=== PATIENT | female | born 1950 | race African-American/Black ===

== ENCOUNTER 2018-11-26 18:41 | Inpatient (IN) ==
[2018-11-26] MEDS ORDERED: ORPHENADRINE 60 MG/2 ML VIAL IV STA (19:49)
[2018-11-26] MEDS ORDERED: KETOROLAC 30 MG/1 ML VIAL IV STA (19:49)
[2018-11-26] MEDS ORDERED: ONDANSETRON 4 MG/2 ML VIAL IV STA (19:49)
[2018-11-26] MEDS ORDERED: hydrALAZINE 20 MG/1 ML VIAL IV STA (19:54)
[2018-11-26 20:33] LABS: Basophils % 0.1 % (0.0-0.8); Eosinophils % 0.1 % (0.00-10.9); Hematocrit 33.8 VOL% (35.7-47.0); Hemoglobin 10.7 GM/DL (12.0-16.0); Immature Granulocytes % 0.7 %; Immature Granulocytes Absolute 0.09 #; Lymphocytes # 0.6 10*3/uL (1.4-4.0); Lymphocytes % 4.5 % (21.3-54.2); Mean Corpuscular HGB Conc 31.7 GM/DL (32-36); Mean Corpuscular Hemoglobin 30 PG (27-34); Mean Corpuscular Volume 93.9 FL (87-102); Mean Platelet Volume 10.5 FL (9.6-12.0); Monocytes # 1.1 10*3/uL (0.11-0.8); Monocytes % 7.9 % (1.7-12.7); Neutrophils # 11.6 10*3/uL (1.4-7.4); Neutrophils % 86.7 % (38.7-73.9); Platelet Count 494 T/CUMM (130-400); Red Cell Distribution Width 16.4 % (9.3-17.3); White Blood Count 13.4 T/CUMM (4-12)
[2018-11-26] MEDS ORDERED: LEVOFLOXACIN INJ 750 MG in PREMIX 1 EACH IV STA (20:47)
[2018-11-26] MEDS ORDERED: ALBUTEROL/IPRATROPIUM 3 ML NEB RESP TX STA (20:48)
[2018-11-26 21:21] LABS: Albumin 2.8 G/DL (3.4-5.0); Bilirubin,Total 0.4 MG/DL (0.2-1.0); Osmolality,Calculated 285.8 MOS/KG (273-304); Potassium 4.2 MMOL/L (3.5-5.1); Total Protein 7.9 G/DL (6.4-8.3)
[2018-11-26] MEDS ORDERED: NITROGLYCERIN 2% OINT 1 INCH/GM PACK TOP ONE (22:31)
[2018-11-26] MEDS ORDERED: TICAGRELOR 90 MG TABLET ONE (22:31)
[2018-11-26] MEDS ORDERED: MORPHINE 4 MG/1 ML VIAL ONE (22:31)
[2018-11-26 22:54] LABS: Lymphocytes 10 % (20-55); Segmented Neutrophils 85 % (50-85); Total Cells Counted 100
[2018-11-26 22:55] LABS: Anisocytosis Slight; Macrocytosis Slight
[2018-11-26 22:56] LABS: Spherocytes Slight
[2018-11-26 22:57] LABS: Platelet Estimate Increased
[2018-11-27 01:15] LABS: PT Patient Result 133.8 SECS
[2018-11-27 01:18] LABS: INR 12.6; Partial Thromboplastin Time > 320.0 SECS (0-40)
[2018-11-27] MEDS ORDERED: DEXTROSE 50% 25 GM/50 ML SYRINGE IV PRN (01:37)
[2018-11-27] MEDS ORDERED: GLUCAGON 1 MG VIAL IM PRN (01:37)
[2018-11-27] MEDS ORDERED: BISACODYL 5 MG TABLET PO PRN (01:37)
[2018-11-27] MEDS ORDERED: MAGNESIUM SULF RIDER 2 GM in PREMIX 1 EACH IV PRN (01:37)
[2018-11-27] MEDS ORDERED: MAGNESIUM SULF RIDER 4 GM in PREMIX 1 EACH IV PRN (01:37)
[2018-11-27] MEDS ORDERED: POTASSIUM CHLORIDE 20 MEQ TABLET PO PRN (01:37)
[2018-11-27] MEDS ORDERED: PHYTONADIONE 10 MG/1 ML AMP SUBCUT ONE (01:51)
[2018-11-27] MEDS ORDERED: LEVOFLOXACIN INJ 750 MG in PREMIX 1 EACH IV ONE (02:00)
[2018-11-27 02:09] LABS: PT Patient Result 172.4 SECS
[2018-11-27 02:10] LABS: INR 16.3
[2018-11-27] MEDS: ALBUTEROL/IPRATROPIUM 3 ML NEB RESP TX SCH ×6 (02:55→23:49)
[2018-11-27 04:59] LABS: Basophils % 0.1 % (0.0-0.8); Eosinophils % 0.4 % (0.00-10.9); Hematocrit 31.4 VOL% (35.7-47.0); Immature Granulocytes % 0.7 %; Immature Granulocytes Absolute 0.07 #; Lymphocytes # 0.6 10*3/uL (1.4-4.0); Lymphocytes % 5.7 % (21.3-54.2); Mean Corpuscular HGB Conc 31.8 GM/DL (32-36); Mean Corpuscular Hemoglobin 30 PG (27-34); Mean Platelet Volume 10.1 FL (9.6-12.0); Monocytes # 1.1 10*3/uL (0.11-0.8); Monocytes % 10.7 % (1.7-12.7); Neutrophils # 8.7 10*3/uL (1.4-7.4); Neutrophils % 82.4 % (38.7-73.9); Platelet Count 445 T/CUMM (130-400); Red Blood Count 3.34 MC/CUMM (3.8-5.5); Red Cell Distribution Width 16.4 % (9.3-17.3); White Blood Count 10.5 T/CUMM (4-12)
[2018-11-27 05:30] LABS: Albumin 2.4 G/DL (3.4-5.0); Bilirubin,Total 0.6 MG/DL (0.2-1.0); Calcium 9.1 MG/DL (8.5-10.1); Osmolality,Calculated 284.7 MOS/KG (273-304); Total Protein 7.6 G/DL (6.4-8.3)
[2018-11-27 08:17] LABS: PT Patient Result 125.5 SECS
[2018-11-27 08:19] LABS: INR 11.8
[2018-11-27] MEDS: INSULIN REGULAR 100 UNIT/ML SUBCUT SCH ×4 (08:41→21:03)
[2018-11-27] MEDS: amLODIPine 10 MG TABLET PO SCH (08:42)
[2018-11-27] MEDS: PANTOPRAZOLE 40 MG TABLET PO SCH (08:42)
[2018-11-27] MEDS: SEVELAMER CARBONATE 800 MG TABLET PO SCH ×3 (08:42→18:22)
[2018-11-27] MEDS ORDERED: PANTOPRAZOLE 40 MG TABLET PO SCH (09:00)
[2018-11-27] MEDS: MORPHINE 4 MG/1 ML VIAL IV PRN ×2 (10:07→18:16)
[2018-11-28] MEDS: MORPHINE 4 MG/1 ML VIAL IV PRN ×3 (02:37→21:21)
[2018-11-28] MEDS: ALBUTEROL/IPRATROPIUM 3 ML NEB RESP TX SCH ×6 (02:44→23:38)
[2018-11-28 04:46] LABS: Basophils % 0.2 % (0.0-0.8); Eosinophils # 0.1 10*3/uL (0.0-0.87); Eosinophils % 0.8 % (0.00-10.9); Hematocrit 32.3 VOL% (35.7-47.0); Hemoglobin 10.3 GM/DL (12.0-16.0); Immature Granulocytes % 0.8 %; Immature Granulocytes Absolute 0.08 #; Lymphocytes # 0.6 10*3/uL (1.4-4.0); Lymphocytes % 5.9 % (21.3-54.2); Mean Corpuscular HGB Conc 31.9 GM/DL (32-36); Mean Corpuscular Hemoglobin 31 PG (27-34); Monocytes # 1.3 10*3/uL (0.11-0.8); Neutrophils # 8.4 10*3/uL (1.4-7.4); Neutrophils % 80.3 % (38.7-73.9); Platelet Count 478 T/CUMM (130-400); Red Blood Count 3.33 MC/CUMM (3.8-5.5); Red Cell Distribution Width 16.5 % (9.3-17.3); White Blood Count 10.4 T/CUMM (4-12)
[2018-11-28 04:58] LABS: INR 1.9; PT Patient Result 20.2 SECS
[2018-11-28 05:03] LABS: Calcium 9.3 MG/DL (8.5-10.1); Osmolality,Calculated 275.4 MOS/KG (273-304); Potassium 3.7 MMOL/L (3.5-5.1)
[2018-11-28] MEDS: INSULIN REGULAR 100 UNIT/ML SUBCUT SCH ×4 (07:56→21:50)
[2018-11-28] MEDS: PANTOPRAZOLE 40 MG TABLET PO SCH (08:01)
[2018-11-28] MEDS: SEVELAMER CARBONATE 800 MG TABLET PO SCH ×3 (08:01→17:25)
[2018-11-28] MEDS: amLODIPine 10 MG TABLET PO SCH (08:01)
[2018-11-28 09:43] LABS: Parathyroid Hormone Intact 517.8 PG/ML (18.4-80.1)
[2018-11-28] MEDS: ERGOCALCIFEROL 50,000 UNIT CAPSULE PO SCH (09:52)
[2018-11-28] MEDS ORDERED: VANCOMYCIN INJ 500 MG in SODIUM CHLORIDE 0.9% 100 ML IV PRN (10:48)
[2018-11-28] MEDS: diphenhydrAMINE CAP 25 MG CAPSULE PO PRN ×2 (10:57→17:27)
[2018-11-28] MEDS ORDERED: VANCOMYCIN INJ 1,500 MG in SODIUM CHLORIDE 0.9% 500 ML IV ONE (11:00)
[2018-11-28] MEDS ORDERED: LEVOFLOXACIN INJ 500 MG in PREMIX 1 EACH IV SCH (21:00)
[2018-11-29] MEDS: ALBUTEROL/IPRATROPIUM 3 ML NEB RESP TX SCH ×6 (03:49→23:19)
[2018-11-29] MEDS: MORPHINE 4 MG/1 ML VIAL IV PRN ×2 (04:10→23:59)
[2018-11-29] MEDS: diphenhydrAMINE CAP 25 MG CAPSULE PO PRN (04:15)
[2018-11-29] MEDS: SEVELAMER CARBONATE 800 MG TABLET PO SCH ×3 (08:58→17:30)
[2018-11-29] MEDS: PANTOPRAZOLE 40 MG TABLET PO SCH (08:58)
[2018-11-29] MEDS: ACETAMINOPHEN 325 MG TABLET PO PRN ×3 (08:59→20:57)
[2018-11-29] MEDS: INSULIN REGULAR 100 UNIT/ML SUBCUT SCH ×4 (09:00→20:58)
[2018-11-29 11:15] LABS: Albumin (SPE) 3.5 G/DL (3.2-5.3); Albumin (SPE) Rel % 44.7 %; Alpha 1 (SPE) 0.4 G/DL (0.1-0.4); Alpha 1 (SPE) Rel % 5.2 %; Alpha 2 (SPE) 1.2 G/DL (0.4-1.0); Alpha 2 (SPE) Rel % 15.6 %; Beta (SPE) 0.7 G/DL (0.5-1.1); Beta (SPE) Rel % 9.5 %; Total Protein (Chem) 7.9 G/DL (6.4-8.3)
[2018-11-29] MEDS: amLODIPine 10 MG TABLET PO SCH (15:47)
[2018-11-29] MEDS ORDERED: VANCOMYCIN INJ 500 MG in SODIUM CHLORIDE 0.9% 100 ML IV ONE (17:00)
[2018-11-29] MEDS: WARFARIN 5 MG TABLET PO SCH (17:31)
[2018-11-30] MEDS: ALBUTEROL/IPRATROPIUM 3 ML NEB RESP TX SCH ×6 (03:04→23:20)
[2018-11-30] MEDS: amLODIPine 10 MG TABLET PO SCH (08:11)
[2018-11-30] MEDS: SEVELAMER CARBONATE 800 MG TABLET PO SCH ×3 (08:11→17:38)
[2018-11-30] MEDS: ACETAMINOPHEN 325 MG TABLET PO PRN ×3 (08:11→23:15)
[2018-11-30] MEDS: PANTOPRAZOLE 40 MG TABLET PO SCH (08:12)
[2018-11-30] MEDS: INSULIN REGULAR 100 UNIT/ML SUBCUT SCH ×4 (09:08→21:11)
[2018-11-30] MEDS: WARFARIN 5 MG TABLET PO SCH (17:40)
[2018-12-01] MEDS: MORPHINE 4 MG/1 ML VIAL IV PRN (00:15)
[2018-12-01] MEDS: ALBUTEROL/IPRATROPIUM 3 ML NEB RESP TX SCH ×6 (02:30→23:39)
[2018-12-01 04:47] LABS: INR 1.1; PT Patient Result 11.6 SECS
[2018-12-01] MEDS: ACETAMINOPHEN 325 MG TABLET PO PRN (08:55)
[2018-12-01] MEDS: SEVELAMER CARBONATE 800 MG TABLET PO SCH ×3 (08:55→17:30)
[2018-12-01] MEDS: PANTOPRAZOLE 40 MG TABLET PO SCH (08:55)
[2018-12-01] MEDS: amLODIPine 10 MG TABLET PO SCH (08:55)
[2018-12-01] MEDS: INSULIN REGULAR 100 UNIT/ML SUBCUT SCH ×4 (08:56→20:57)
[2018-12-01] MEDS: WARFARIN 5 MG TABLET PO SCH (18:42)
[2018-12-01] MEDS: traMADol 50 MG TABLET PO SCH (20:57)
[2018-12-01] MEDS: ONDANSETRON 4 MG/2 ML VIAL IV PRN (23:00)
[2018-12-02] MEDS: ACETAMINOPHEN 325 MG TABLET PO PRN ×2 (01:40→17:26)
[2018-12-02] MEDS: ALBUTEROL/IPRATROPIUM 3 ML NEB RESP TX SCH ×6 (03:28→23:18)
[2018-12-02 04:05] LABS: INR 1.2
[2018-12-02] MEDS ORDERED: VANCOMYCIN INJ 1,000 MG in SODIUM CHLORIDE 0.9% 100 ML IV PRN (08:49)
[2018-12-02] MEDS: traMADol 50 MG TABLET PO SCH ×2 (10:00→22:41)
[2018-12-02] MEDS ORDERED: VANCOMYCIN INJ 1,000 MG in SODIUM CHLORIDE 0.9% 250 ML IV PRN (12:00)
[2018-12-02] MEDS ORDERED: TUBERCULIN SKIN TEST 0.1 ML SYRINGE INTRADERM ONE (12:30)
[2018-12-02] MEDS: INSULIN REGULAR 100 UNIT/ML SUBCUT SCH ×3 (13:26→22:43)
[2018-12-02] MEDS: SEVELAMER CARBONATE 800 MG TABLET PO SCH ×3 (13:27→17:26)
[2018-12-02] MEDS: PANTOPRAZOLE 40 MG TABLET PO SCH (14:12)
[2018-12-02] MEDS: amLODIPine 10 MG TABLET PO SCH (14:12)
[2018-12-02] MEDS: CARVEDILOL 6.25 MG TABLET PO SCH ×2 (14:12→22:41)
[2018-12-02] MEDS: diphenhydrAMINE CAP 25 MG CAPSULE PO PRN ×2 (14:20→22:48)
[2018-12-02] MEDS: ONDANSETRON 4 MG/2 ML VIAL IV PRN (14:20)
[2018-12-02] MEDS: WARFARIN 5 MG TABLET PO SCH (17:26)
[2018-12-03] MEDS: ACETAMINOPHEN 325 MG TABLET PO PRN ×2 (02:44→14:08)
[2018-12-03] MEDS: ALBUTEROL/IPRATROPIUM 3 ML NEB RESP TX SCH ×6 (02:59→23:18)
[2018-12-03 05:08] LABS: Basophils % 0.3 % (0.0-0.8); Eosinophils # 0.3 10*3/uL (0.0-0.87); Eosinophils % 3.9 % (0.00-10.9); Hematocrit 27.1 VOL% (35.7-47.0); Hemoglobin 8.2 GM/DL (12.0-16.0); Immature Granulocytes % 0.6 %; Immature Granulocytes Absolute 0.05 #; Lymphocytes # 0.5 10*3/uL (1.4-4.0); Lymphocytes % 6.3 % (21.3-54.2); Mean Corpuscular HGB Conc 30.3 GM/DL (32-36); Mean Corpuscular Hemoglobin 29 PG (27-34); Mean Corpuscular Volume 97.1 FL (87-102); Mean Platelet Volume 10.2 FL (9.6-12.0); Monocytes # 0.9 10*3/uL (0.11-0.8); Monocytes % 11.4 % (1.7-12.7); Neutrophils # 6.1 10*3/uL (1.4-7.4); Neutrophils % 77.5 % (38.7-73.9); Platelet Count 420 T/CUMM (130-400); Red Blood Count 2.79 MC/CUMM (3.8-5.5); Red Cell Distribution Width 15.8 % (9.3-17.3); White Blood Count 7.9 T/CUMM (4-12)
[2018-12-03 05:38] LABS: Calcium 9.7 MG/DL (8.5-10.1); Osmolality,Calculated 272.5 MOS/KG (273-304)
[2018-12-03] MEDS: INSULIN REGULAR 100 UNIT/ML SUBCUT SCH ×3 (08:50→17:43)
[2018-12-03] MEDS: traMADol 50 MG TABLET PO SCH ×2 (08:51→21:55)
[2018-12-03] MEDS: SEVELAMER CARBONATE 800 MG TABLET PO SCH ×3 (08:51→17:43)
[2018-12-03] MEDS: amLODIPine 10 MG TABLET PO SCH (08:51)
[2018-12-03] MEDS: PANTOPRAZOLE 40 MG TABLET PO SCH (08:52)
[2018-12-03] MEDS: CARVEDILOL 6.25 MG TABLET PO SCH ×2 (08:52→21:55)
[2018-12-03] MEDS: WARFARIN 5 MG TABLET PO SCH (17:43)
[2018-12-03] MEDS: diphenhydrAMINE CAP 25 MG CAPSULE PO PRN (18:31)
[2018-12-03] MEDS: ONDANSETRON 4 MG/2 ML VIAL IV PRN (23:25)
[2018-12-04] MEDS: INSULIN REGULAR 100 UNIT/ML SUBCUT SCH ×5 (00:39→22:42)
[2018-12-04] MEDS: ALBUTEROL/IPRATROPIUM 3 ML NEB RESP TX SCH ×6 (02:59→23:48)
[2018-12-04 05:43] LABS: Basophils % 0.3 % (0.0-0.8); Eosinophils # 0.3 10*3/uL (0.0-0.87); Eosinophils % 4.9 % (0.00-10.9); Hematocrit 27.5 VOL% (35.7-47.0); Hemoglobin 8.3 GM/DL (12.0-16.0); Immature Granulocytes % 0.3 %; Immature Granulocytes Absolute 0.02 #; Lymphocytes # 0.7 10*3/uL (1.4-4.0); Lymphocytes % 10.8 % (21.3-54.2); Mean Corpuscular HGB Conc 30.2 GM/DL (32-36); Mean Corpuscular Hemoglobin 30 PG (27-34); Mean Corpuscular Volume 97.9 FL (87-102); Mean Platelet Volume 10.1 FL (9.6-12.0); Monocytes # 0.9 10*3/uL (0.11-0.8); Monocytes % 13.1 % (1.7-12.7); Neutrophils # 4.7 10*3/uL (1.4-7.4); Neutrophils % 70.6 % (38.7-73.9); Platelet Count 426 T/CUMM (130-400); Red Blood Count 2.81 MC/CUMM (3.8-5.5); Red Cell Distribution Width 15.5 % (9.3-17.3); White Blood Count 6.6 T/CUMM (4-12)
[2018-12-04 05:52] LABS: INR 1.4; PT Patient Result 15.3 SECS
[2018-12-04 06:04] LABS: Albumin 2.2 G/DL (3.4-5.0); Bilirubin,Total 0.6 MG/DL (0.2-1.0); Calcium 9.9 MG/DL (8.5-10.1); Osmolality,Calculated 274.8 MOS/KG (273-304); Potassium 4.9 MMOL/L (3.5-5.1); Total Protein 7.3 G/DL (6.4-8.3)
[2018-12-04] MEDS: ACETAMINOPHEN 325 MG TABLET PO PRN ×2 (06:15→14:29)
[2018-12-04] MEDS: CARVEDILOL 6.25 MG TABLET PO SCH ×2 (08:33→21:36)
[2018-12-04] MEDS: traMADol 50 MG TABLET PO SCH ×2 (08:33→22:34)
[2018-12-04] MEDS: PANTOPRAZOLE 40 MG TABLET PO SCH (08:33)
[2018-12-04] MEDS: SEVELAMER CARBONATE 800 MG TABLET PO SCH ×3 (08:33→17:30)
[2018-12-04] MEDS ORDERED: VANCOMYCIN INJ 750 MG in SODIUM CHLORIDE 0.9% 250 ML IV PRN (11:30)
[2018-12-04] MEDS ORDERED: VANCOMYCIN INJ 500 MG in SODIUM CHLORIDE 0.9% 100 ML IV ONE (12:00)
[2018-12-04] MEDS ORDERED: VANCOMYCIN INJ 750 MG in SODIUM CHLORIDE 0.9% 250 ML IV ONE (16:00)
[2018-12-04] MEDS ORDERED: INSULIN GLARGINE 100 UNIT/ML SUBCUT SCH (17:00)
[2018-12-04] MEDS: HEPARIN 5,000 UNIT/1 ML VIAL SUBCUT SCH (17:30)
[2018-12-04] MEDS: WARFARIN 5 MG TABLET PO SCH (17:30)
[2018-12-04] MEDS ORDERED: amLODIPine 10 MG TABLET PO SCH (21:00)
[2018-12-04] MEDS: diphenhydrAMINE CAP 25 MG CAPSULE PO PRN (22:34)
[2018-12-05] MEDS: ALBUTEROL/IPRATROPIUM 3 ML NEB RESP TX SCH ×3 (03:35→11:47)
[2018-12-05] MEDS: HEPARIN 5,000 UNIT/1 ML VIAL SUBCUT SCH (04:29)
[2018-12-05 06:07] LABS: Basophils % 0.2 % (0.0-0.8); Eosinophils # 0.3 10*3/uL (0.0-0.87); Eosinophils % 4.5 % (0.00-10.9); Hematocrit 27.8 VOL% (35.7-47.0); Hemoglobin 8.3 GM/DL (12.0-16.0); Immature Granulocytes % 0.5 %; Immature Granulocytes Absolute 0.03 #; Lymphocytes # 0.5 10*3/uL (1.4-4.0); Lymphocytes % 8.3 % (21.3-54.2); Mean Corpuscular HGB Conc 29.9 GM/DL (32-36); Mean Corpuscular Hemoglobin 29 PG (27-34); Mean Corpuscular Volume 97.9 FL (87-102); Mean Platelet Volume 10.5 FL (9.6-12.0); Monocytes # 0.6 10*3/uL (0.11-0.8); Monocytes % 9.6 % (1.7-12.7); Neutrophils # 4.7 10*3/uL (1.4-7.4); Neutrophils % 76.9 % (38.7-73.9); Platelet Count 383 T/CUMM (130-400); Red Blood Count 2.84 MC/CUMM (3.8-5.5); Red Cell Distribution Width 15.7 % (9.3-17.3)
[2018-12-05 06:13] LABS: INR 1.5; PT Patient Result 16.1 SECS
[2018-12-05 06:25] LABS: Alanine Aminotransferase 13 U/L (13-56); Albumin 2.2 G/DL (3.4-5.0); Alkaline Phosphatase 78 U/L (45-117); Aspartate Amino Transferase 15 U/L (0-37); Bilirubin,Total < 0.39 MG/DL (0.2-1.0); Blood Urea Nitrogen 28 MG/DL (7-18); Calcium 9.8 MG/DL (8.5-10.1); Glucose 48 MG/DL (74-106); Osmolality,Calculated 266.5 MOS/KG (273-304); Potassium 4.2 MMOL/L (3.5-5.1); Sodium 132 MMOL/L (136-145); Total Protein 7.5 G/DL (6.4-8.3)
[2018-12-05] MEDS: INSULIN REGULAR 100 UNIT/ML SUBCUT SCH ×2 (08:13→12:07)
[2018-12-05] MEDS: traMADol 50 MG TABLET PO SCH (08:46)
[2018-12-05] MEDS: SEVELAMER CARBONATE 800 MG TABLET PO SCH ×2 (08:46→12:08)
[2018-12-05] MEDS: CARVEDILOL 6.25 MG TABLET PO SCH (08:46)
[2018-12-05] MEDS: PANTOPRAZOLE 40 MG TABLET PO SCH (08:46)
[2018-12-05] MEDS: ERGOCALCIFEROL 50,000 UNIT CAPSULE PO SCH (09:00)
[2018-12-05 13:12] VITALS: BP 139/70
[2018-12-05] MEDS: ACETAMINOPHEN 325 MG TABLET PO PRN (13:49)
== END 2018-12-05 14:38 | DRG 551 ==
LOC: N.ED 18:41 → N.EDINP 23:29 → SUATTDRO 23:29 → N.TELEN 11-27 00:03 → N.5E 12-02 15:26
PROVIDERS: ADMIT Internal Medicine; ATTEND Internal Medicine

== ENCOUNTER 2019-01-27 12:55 | Inpatient (IN) ==
[2019-01-27] MEDS ORDERED: ONDANSETRON 4 MG/2 ML VIAL IV STA (13:24)
[2019-01-27] MEDS ORDERED: PANTOPRAZOLE 40 MG VIAL IV STA (13:24)
[2019-01-27] MEDS ORDERED: METOCLOPRAMIDE 10 MG/2 ML VIAL IV STA (13:24)
[2019-01-27 14:42] LABS: Basophils % 0.4 % (0.0-0.8); Eosinophils % 0.6 % (0.00-10.9); Hematocrit 35.6 VOL% (35.7-47.0); Hemoglobin 11.1 GM/DL (12.0-16.0); Immature Granulocytes % 0.8 %; Immature Granulocytes Absolute 0.04 #; Lymphocytes # 0.8 10*3/uL (1.4-4.0); Lymphocytes % 15.1 % (21.3-54.2); Mean Corpuscular HGB Conc 31.2 GM/DL (32-36); Mean Corpuscular Hemoglobin 30 PG (27-34); Mean Corpuscular Volume 95.2 FL (87-102); Mean Platelet Volume 11.5 FL (9.6-12.0); Monocytes # 0.5 10*3/uL (0.11-0.8); Monocytes % 8.7 % (1.7-12.7); Neutrophils # 3.9 10*3/uL (1.4-7.4); Neutrophils % 74.4 % (38.7-73.9); Platelet Count 204 T/CUMM (130-400); Red Blood Count 3.74 MC/CUMM (3.8-5.5); White Blood Count 5.2 T/CUMM (4-12)
[2019-01-27 14:54] LABS: PT Patient Result 10.6 SECS; Partial Thromboplastin Time 23.7 SECS (0-40)
[2019-01-27 15:10] LABS: Free T4 (Free Thyroxine) 1.22 NG/DL (0.76-1.46); Thyroid Stimulating Hormone 1.91 uIU/ml (0.358-3.74)
[2019-01-27 15:17] LABS: Albumin 3.6 G/DL (3.4-5.0); Bilirubin,Total 0.9 MG/DL (0.2-1.0); Calcium 9.8 MG/DL (8.5-10.1); Osmolality,Calculated 287.1 MOS/KG (273-304); Potassium 3.7 MMOL/L (3.5-5.1); Total Protein 7.8 G/DL (6.4-8.3)
[2019-01-27] MEDS ORDERED: AZITHROMYCIN INJ 500 MG in SODIUM CHLORIDE 0.9% 250 ML IV STA (15:37)
[2019-01-27] MEDS ORDERED: GLUCAGON 1 MG VIAL IM PRN (17:13)
[2019-01-27] MEDS ORDERED: DEXTROSE 50% 25 GM/50 ML VIAL IV PRN (17:13)
[2019-01-27] MEDS ORDERED: DOCUSATE SODIUM 100 MG CAPSULE PO PRN (17:13)
[2019-01-27] MEDS ORDERED: ALBUTEROL/IPRATROPIUM 3 ML NEB RESP TX PRN (17:46)
[2019-01-27 17:48] LABS: Risk Ratio 3.32
[2019-01-27] MEDS ORDERED: LEVOFLOXACIN INJ 500 MG in PREMIX 1 EACH IV ONE (20:00)
[2019-01-27] MEDS: ALBUTEROL/IPRATROPIUM 3 ML NEB RESP TX SCH (20:14)
[2019-01-27] MEDS: CARVEDILOL 25 MG TABLET PO SCH (21:46)
[2019-01-27] MEDS: SEVELAMER CARBONATE 800 MG TABLET PO SCH (21:46)
[2019-01-27] MEDS: amLODIPine 10 MG TABLET PO SCH (21:46)
[2019-01-27] MEDS: INSULIN LISPRO 100 UNIT/ML SUBCUT SCH (21:47)
[2019-01-28] MEDS: ALBUTEROL/IPRATROPIUM 3 ML NEB RESP TX SCH ×4 (00:33→19:21)
[2019-01-28] MEDS: ACETAMINOPHEN 325 MG TABLET PO PRN ×4 (03:35→23:54)
[2019-01-28 05:34] LABS: Basophils % 0.4 % (0.0-0.8); Eosinophils # 0.1 10*3/uL (0.0-0.87); Hematocrit 30.6 VOL% (35.7-47.0); Hemoglobin 9.5 GM/DL (12.0-16.0); Immature Granulocytes % 0.2 %; Immature Granulocytes Absolute 0.01 #; Lymphocytes # 0.9 10*3/uL (1.4-4.0); Lymphocytes % 18.9 % (21.3-54.2); Mean Corpuscular Hemoglobin 30 PG (27-34); Mean Platelet Volume 11.8 FL (9.6-12.0); Monocytes # 0.5 10*3/uL (0.11-0.8); Monocytes % 10.7 % (1.7-12.7); Neutrophils % 67.8 % (38.7-73.9); Platelet Count 176 T/CUMM (130-400); Red Blood Count 3.22 MC/CUMM (3.8-5.5); Red Cell Distribution Width 14.9 % (9.3-17.3); White Blood Count 4.5 T/CUMM (4-12)
[2019-01-28 06:01] LABS: Albumin 2.9 G/DL (3.4-5.0); Bilirubin,Total 0.8 MG/DL (0.2-1.0); Calcium 9.4 MG/DL (8.5-10.1); Osmolality,Calculated 284.7 MOS/KG (273-304); Potassium 3.5 MMOL/L (3.5-5.1); Total Protein 6.8 G/DL (6.4-8.3)
[2019-01-28] MEDS: INSULIN LISPRO 100 UNIT/ML SUBCUT SCH ×3 (07:30→17:46)
[2019-01-28] MEDS: PANTOPRAZOLE 40 MG TABLET PO SCH (10:22)
[2019-01-28] MEDS: CINACALCET 30 MG TABLET PO SCH (10:22)
[2019-01-28] MEDS: SEVELAMER CARBONATE 800 MG TABLET PO SCH ×5 (10:22→20:39)
[2019-01-28] MEDS: POLYETHYLENE GLYCOL POWDER 17 GM PACK PO SCH (10:23)
[2019-01-28] MEDS: MULTIVITAMIN (BEROCCA) TABLET PO SCH (10:23)
[2019-01-28] MEDS: CARVEDILOL 25 MG TABLET PO SCH ×2 (10:23→17:46)
[2019-01-28] MEDS ORDERED: VANCOMYCIN INJ 1,000 MG in SODIUM CHLORIDE 0.9% 250 ML IV ONE (14:30)
[2019-01-28] MEDS: INSULIN GLARGINE 100 UNIT/ML SUBCUT SCH (17:46)
[2019-01-28] MEDS: ATORVASTATIN 10 MG TABLET PO SCH (20:40)
[2019-01-28] MEDS: amLODIPine 10 MG TABLET PO SCH (20:40)
[2019-01-28] MEDS: ONDANSETRON 4 MG/2 ML VIAL IV PRN (21:01)
[2019-01-29] MEDS: ALBUTEROL/IPRATROPIUM 3 ML NEB RESP TX SCH ×4 (00:08→20:05)
[2019-01-29] MEDS: ONDANSETRON 4 MG/2 ML VIAL IV PRN ×2 (07:35→11:14)
[2019-01-29] MEDS: INSULIN LISPRO 100 UNIT/ML SUBCUT SCH ×3 (07:40→16:05)
[2019-01-29 07:55] LABS: Basophils % 0.3 % (0.0-0.8); Eosinophils # 0.1 10*3/uL (0.0-0.87); Eosinophils % 1.7 % (0.00-10.9); Hematocrit 34.2 VOL% (35.7-47.0); Hemoglobin 10.5 GM/DL (12.0-16.0); Immature Granulocytes % 0.5 %; Immature Granulocytes Absolute 0.03 #; Lymphocytes # 0.8 10*3/uL (1.4-4.0); Lymphocytes % 12.3 % (21.3-54.2); Mean Corpuscular HGB Conc 30.7 GM/DL (32-36); Mean Corpuscular Hemoglobin 29 PG (27-34); Mean Corpuscular Volume 95.5 FL (87-102); Mean Platelet Volume 11.9 FL (9.6-12.0); Monocytes # 0.5 10*3/uL (0.11-0.8); Neutrophils # 5.1 10*3/uL (1.4-7.4); Neutrophils % 77.2 % (38.7-73.9); Platelet Count 192 T/CUMM (130-400); Red Blood Count 3.58 MC/CUMM (3.8-5.5); Red Cell Distribution Width 15.1 % (9.3-17.3); White Blood Count 6.7 T/CUMM (4-12)
[2019-01-29 08:29] LABS: Calcium 9.5 MG/DL (8.5-10.1); Potassium 3.6 MMOL/L (3.5-5.1)
[2019-01-29] MEDS ORDERED: VANCOMYCIN INJ 500 MG in SODIUM CHLORIDE 0.9% 100 ML IV PRN (08:30)
[2019-01-29] MEDS ORDERED: HEPARIN 5,000 UNIT/1 ML VIAL SUBCUT SCH (09:00)
[2019-01-29] MEDS: CARVEDILOL 25 MG TABLET PO SCH ×2 (09:15→16:35)
[2019-01-29] MEDS: CINACALCET 30 MG TABLET PO SCH (09:15)
[2019-01-29] MEDS: SEVELAMER CARBONATE 800 MG TABLET PO SCH ×4 (09:16→16:40)
[2019-01-29] MEDS: MULTIVITAMIN (BEROCCA) TABLET PO SCH (09:16)
[2019-01-29] MEDS: PANTOPRAZOLE 40 MG TABLET PO SCH (09:16)
[2019-01-29] MEDS: POLYETHYLENE GLYCOL POWDER 17 GM PACK PO SCH (09:16)
[2019-01-29] MEDS ORDERED: SEVELAMER CARBONATE 800 MG TABLET PO SCH (09:30)
[2019-01-29 12:50] LABS: PT Patient Result 11.1 SECS
[2019-01-29] MEDS ORDERED: TUBERCULIN SKIN TEST 0.1 ML SYRINGE INTRADERM ONE (13:30)
[2019-01-29] MEDS: INSULIN GLARGINE 100 UNIT/ML SUBCUT SCH (16:39)
[2019-01-29] MEDS ORDERED: VANCOMYCIN INJ 500 MG in SODIUM CHLORIDE 0.9% 100 ML IV ONE (17:00)
[2019-01-29] MEDS: LEVOFLOXACIN INJ 250 MG in PREMIX 1 EACH IV SCH (20:50)
[2019-01-29] MEDS: ATORVASTATIN 10 MG TABLET PO SCH (20:54)
[2019-01-29] MEDS: amLODIPine 10 MG TABLET PO SCH (20:57)
[2019-01-30] MEDS: ALBUTEROL/IPRATROPIUM 3 ML NEB RESP TX SCH ×4 (00:32→19:35)
[2019-01-30 05:12] LABS: Basophils % 0.6 % (0.0-0.8); Eosinophils # 0.1 10*3/uL (0.0-0.87); Eosinophils % 2.8 % (0.00-10.9); Hematocrit 30.3 VOL% (35.7-47.0); Hemoglobin 9.2 GM/DL (12.0-16.0); Immature Granulocytes % 0.2 %; Immature Granulocytes Absolute 0.01 #; Lymphocytes # 1.1 10*3/uL (1.4-4.0); Lymphocytes % 23.1 % (21.3-54.2); Mean Corpuscular HGB Conc 30.4 GM/DL (32-36); Mean Corpuscular Hemoglobin 29 PG (27-34); Mean Corpuscular Volume 96.8 FL (87-102); Mean Platelet Volume 11.8 FL (9.6-12.0); Monocytes # 0.6 10*3/uL (0.11-0.8); Monocytes % 12.5 % (1.7-12.7); Neutrophils # 2.8 10*3/uL (1.4-7.4); Neutrophils % 60.8 % (38.7-73.9); Platelet Count 164 T/CUMM (130-400); Red Blood Count 3.13 MC/CUMM (3.8-5.5); White Blood Count 4.6 T/CUMM (4-12)
[2019-01-30 05:37] LABS: Calcium 8.9 MG/DL (8.5-10.1); Potassium 3.9 MMOL/L (3.5-5.1)
[2019-01-30] MEDS: INSULIN LISPRO 100 UNIT/ML SUBCUT SCH ×3 (07:15→16:36)
[2019-01-30] MEDS: SEVELAMER CARBONATE 800 MG TABLET PO SCH ×3 (07:38→16:23)
[2019-01-30] MEDS: CARVEDILOL 25 MG TABLET PO SCH ×2 (08:59→16:24)
[2019-01-30] MEDS: POLYETHYLENE GLYCOL POWDER 17 GM PACK PO SCH (09:06)
[2019-01-30] MEDS: MULTIVITAMIN (BEROCCA) TABLET PO SCH (09:07)
[2019-01-30] MEDS: PANTOPRAZOLE 40 MG TABLET PO SCH (09:07)
[2019-01-30] MEDS: CINACALCET 30 MG TABLET PO SCH (09:07)
[2019-01-30] MEDS ORDERED: LIDOCAINE 1%/EPI INJ 20 ML VIAL ONE (11:19)
[2019-01-30] MEDS ORDERED: methylPREDNISolone ACETATE 80 MG/1 ML VIAL ONE (11:19)
[2019-01-30] MEDS ORDERED: VANCOMYCIN 500 MG VIAL ONE (11:19)
[2019-01-30] MEDS ORDERED: PROPOFOL 200 MG/20 ML VIAL IV ONE (12:36)
[2019-01-30] MEDS ORDERED: MIDAZOLAM 2 MG/2 ML VIAL ONE (12:36)
[2019-01-30] MEDS ORDERED: fentaNYL 100 MCG/2 ML VIAL ONE (12:37)
[2019-01-30] MEDS: INSULIN GLARGINE 100 UNIT/ML SUBCUT SCH (16:36)
[2019-01-30] MEDS: ATORVASTATIN 10 MG TABLET PO SCH (21:51)
[2019-01-30] MEDS: amLODIPine 10 MG TABLET PO SCH (21:51)
[2019-01-31] MEDS: ALBUTEROL/IPRATROPIUM 3 ML NEB RESP TX SCH ×4 (00:45→19:32)
[2019-01-31 05:23] LABS: Basophils % 0.7 % (0.0-0.8); Eosinophils # 0.2 10*3/uL (0.0-0.87); Eosinophils % 3.8 % (0.00-10.9); Hematocrit 29.5 VOL% (35.7-47.0); Hemoglobin 9.1 GM/DL (12.0-16.0); Immature Granulocytes % 0.2 %; Immature Granulocytes Absolute 0.01 #; Lymphocytes # 0.9 10*3/uL (1.4-4.0); Mean Corpuscular HGB Conc 30.8 GM/DL (32-36); Mean Corpuscular Hemoglobin 30 PG (27-34); Mean Corpuscular Volume 96.4 FL (87-102); Monocytes # 0.5 10*3/uL (0.11-0.8); Monocytes % 11.2 % (1.7-12.7); Neutrophils # 2.8 10*3/uL (1.4-7.4); Neutrophils % 63.1 % (38.7-73.9); Platelet Count 170 T/CUMM (130-400); Red Blood Count 3.06 MC/CUMM (3.8-5.5); Red Cell Distribution Width 14.7 % (9.3-17.3); White Blood Count 4.5 T/CUMM (4-12)
[2019-01-31 05:46] LABS: Calcium 8.8 MG/DL (8.5-10.1); Osmolality,Calculated 275.4 MOS/KG (273-304); Potassium 4.1 MMOL/L (3.5-5.1)
[2019-01-31] MEDS: INSULIN LISPRO 100 UNIT/ML SUBCUT SCH ×3 (08:28→17:25)
[2019-01-31] MEDS: MULTIVITAMIN (BEROCCA) TABLET PO SCH (08:28)
[2019-01-31] MEDS: CARVEDILOL 25 MG TABLET PO SCH ×2 (08:29→17:25)
[2019-01-31] MEDS: CINACALCET 30 MG TABLET PO SCH (08:29)
[2019-01-31] MEDS: PANTOPRAZOLE 40 MG TABLET PO SCH (08:29)
[2019-01-31] MEDS: SEVELAMER CARBONATE 800 MG TABLET PO SCH ×3 (08:29→17:25)
[2019-01-31] MEDS: POLYETHYLENE GLYCOL POWDER 17 GM PACK PO SCH (08:30)
[2019-01-31] MEDS ORDERED: VANCOMYCIN INJ 500 MG in SODIUM CHLORIDE 0.9% 100 ML IV ONE (13:00)
[2019-01-31] MEDS: INSULIN GLARGINE 100 UNIT/ML SUBCUT SCH (17:26)
[2019-01-31] MEDS: ONDANSETRON 4 MG/2 ML VIAL IV PRN (21:03)
[2019-01-31] MEDS: amLODIPine 10 MG TABLET PO SCH (21:07)
[2019-01-31] MEDS: ATORVASTATIN 10 MG TABLET PO SCH (21:07)
[2019-01-31] MEDS: LEVOFLOXACIN INJ 250 MG in PREMIX 1 EACH IV SCH (21:07)
[2019-02-01] MEDS: ALBUTEROL/IPRATROPIUM 3 ML NEB RESP TX SCH ×2 (01:06→07:13)
[2019-02-01 05:57] LABS: Basophils % 0.3 % (0.0-0.8); Eosinophils # 0.1 10*3/uL (0.0-0.87); Eosinophils % 3.1 % (0.00-10.9); Hematocrit 29.7 VOL% (35.7-47.0); Hemoglobin 9.1 GM/DL (12.0-16.0); Immature Granulocytes % 0.3 %; Immature Granulocytes Absolute 0.01 #; Lymphocytes # 0.9 10*3/uL (1.4-4.0); Lymphocytes % 22.2 % (21.3-54.2); Mean Corpuscular HGB Conc 30.6 GM/DL (32-36); Mean Corpuscular Hemoglobin 30 PG (27-34); Mean Corpuscular Volume 97.1 FL (87-102); Mean Platelet Volume 11.5 FL (9.6-12.0); Monocytes # 0.5 10*3/uL (0.11-0.8); Neutrophils # 2.4 10*3/uL (1.4-7.4); Neutrophils % 62.1 % (38.7-73.9); Platelet Count 153 T/CUMM (130-400); Red Blood Count 3.06 MC/CUMM (3.8-5.5); Red Cell Distribution Width 14.6 % (9.3-17.3); White Blood Count 3.8 T/CUMM (4-12)
[2019-02-01 06:04] LABS: Calcium 8.6 MG/DL (8.5-10.1); Potassium 4.1 MMOL/L (3.5-5.1)
[2019-02-01] MEDS: MULTIVITAMIN (BEROCCA) TABLET PO SCH (09:08)
[2019-02-01] MEDS: CINACALCET 30 MG TABLET PO SCH (09:08)
[2019-02-01] MEDS: PANTOPRAZOLE 40 MG TABLET PO SCH (09:09)
[2019-02-01] MEDS: INSULIN LISPRO 100 UNIT/ML SUBCUT SCH ×2 (09:09→11:55)
[2019-02-01] MEDS: SEVELAMER CARBONATE 800 MG TABLET PO SCH ×2 (09:24→11:54)
[2019-02-01] MEDS: POLYETHYLENE GLYCOL POWDER 17 GM PACK PO SCH (09:25)
[2019-02-01] MEDS: CARVEDILOL 25 MG TABLET PO SCH (09:25)
[2019-02-01 12:01] VITALS: BP 124/73
== END 2019-02-01 14:55 | disposition home or self-care (01) | DRG 551 ==
LOC: EDBD → EDUNIT# → N.ED 12:55 → SUATTDRO 17:13 → N.EDINP 17:13 → N.2E 18:14
PROVIDERS: ADMIT Phlebology; ATTEND Internal Medicine

== ENCOUNTER 2020-03-08 11:55 | Inpatient (IN) ==
[2020-03-08] MEDS ORDERED: ONDANSETRON 4 MG/2 ML VIAL IV STA (12:31)
[2020-03-08 13:21] LABS: Hematocrit 34.8 VOL% (35.7-47.0); Hemoglobin 10.9 GM/DL (12.0-16.0); Immature Granulocytes % 0.7 %; Immature Granulocytes Absolute 0.02 #; Lymphocytes # 0.3 10*3/uL (1.4-4.0); Lymphocytes % 10.3 % (21.3-54.2); Mean Corpuscular HGB Conc 31.3 GM/DL (32-36); Mean Corpuscular Volume 94.3 FL (87-102); Mean Platelet Volume 12.7 FL (9.6-12.0); Monocytes % 7.3 % (1.7-12.7); Neutrophils % 81.7 % (38.7-73.9); Platelet Count 116 T/CUMM (130-400); Red Blood Count 3.69 MC/CUMM (3.8-5.5)
[2020-03-08 13:39] LABS: Bilirubin,Total 0.4 MG/DL (0.2-1.0); Calcium 8.4 MG/DL (8.5-10.1); Osmolality,Calculated 285.2 MOS/KG (273-304); Total Protein 7.5 G/DL (6.4-8.3)
[2020-03-08] MEDS ORDERED: ONDANSETRON ODT 4 MG TABLET PO PRN (15:38)
[2020-03-08] MEDS ORDERED: ALUMINUM/MAGNES/SIMETH MAX STR 30 ML UDCUP PO PRN (15:50)
[2020-03-08] MEDS ORDERED: guaiFENesin/DM ER 600-30 MG TABLET PO PRN (15:50)
[2020-03-08] MEDS ORDERED: LACTULOSE 20 GM/30 ML UDCUP PO PRN (15:50)
[2020-03-08] MEDS ORDERED: DEXTROSE 10% 250 ML BAG IV PRN (15:50)
[2020-03-08] MEDS ORDERED: hydrALAZINE 20 MG/1 ML VIAL IV PRN (15:50)
[2020-03-08] MEDS ORDERED: GLUCAGON 1 MG VIAL IM PRN (15:50)
[2020-03-08] MEDS ORDERED: ZALEPLON 5 MG CAPSULE PO PRN (15:50)
[2020-03-08] MEDS ORDERED: ACETAMINOPHEN 325 MG TABLET PO PRN (15:50)
[2020-03-08] MEDS ORDERED: BISACODYL 5 MG TABLET PO PRN (15:50)
[2020-03-08] MEDS: INSULIN REGULAR 100 UNIT/ML SUBCUT SCH ×2 (20:21→22:01)
[2020-03-08] MEDS: SEVELAMER CARBONATE 800 MG TABLET PO SCH ×2 (20:22→22:01)
[2020-03-08] MEDS: AZITHROMYCIN INJ 500 MG in SODIUM CHLORIDE 0.9% 250 ML IV SCH (21:56)
[2020-03-08] MEDS: DOCUSATE SODIUM 100 MG CAPSULE PO SCH (22:00)
[2020-03-08] MEDS: cefTRIAXone 1,000 MG in SYRINGE 1 EACH IV SCH (22:00)
[2020-03-08] MEDS: INSULIN GLARGINE 100 UNIT/ML SUBCUT SCH (22:01)
[2020-03-08] MEDS: amLODIPine 10 MG TABLET PO SCH (22:01)
[2020-03-09 06:27] LABS: Basophils % 0.4 % (0.0-0.8); Hematocrit 35.7 VOL% (35.7-47.0); Hemoglobin 10.9 GM/DL (12.0-16.0); Immature Granulocytes % 0.8 %; Immature Granulocytes Absolute 0.02 #; Lymphocytes # 0.5 10*3/uL (1.4-4.0); Lymphocytes % 21.1 % (21.3-54.2); Mean Corpuscular HGB Conc 30.5 GM/DL (32-36); Mean Corpuscular Volume 95.2 FL (87-102); Mean Platelet Volume 13.1 FL (9.6-12.0); Monocytes % 9.2 % (1.7-12.7); Neutrophils % 68.5 % (38.7-73.9); Platelet Count 119 T/CUMM (130-400); Red Blood Count 3.75 MC/CUMM (3.8-5.5); White Blood Count 2.5 T/CUMM (4-12)
[2020-03-09 06:55] LABS: Alanine Aminotransferase 27 U/L (13-56); Albumin 2.7 G/DL (3.4-5.0); Alkaline Phosphatase 74 U/L (45-117); Aspartate Amino Transferase 59 U/L (0-37); Bilirubin,Total < 0.39 MG/DL (0.2-1.0); Blood Urea Nitrogen 29 MG/DL (7-18); Calcium 8.6 MG/DL (8.5-10.1); Estimated Glom Filtration Rate 6 ML/MIN; Glucose 204 MG/DL (74-106); Osmolality,Calculated 284.8 MOS/KG (273-304); Total Protein 6.8 G/DL (6.4-8.3)
[2020-03-09 07:06] LABS: Risk Ratio 3.18; Thyroid Stimulating Hormone 1.33 uIU/ml (0.358-3.74); VLDL CHOLESTEROL 43.8 MG/DL
[2020-03-09] MEDS: SEVELAMER CARBONATE 800 MG TABLET PO SCH ×5 (08:00→20:42)
[2020-03-09] MEDS: DOCUSATE SODIUM 100 MG CAPSULE PO SCH ×2 (08:00→21:17)
[2020-03-09] MEDS: PANTOPRAZOLE 40 MG TABLET PO SCH (08:00)
[2020-03-09] MEDS: CINACALCET 30 MG TABLET PO SCH (08:01)
[2020-03-09] MEDS: POLYETHYLENE GLYCOL POWDER 17 GM PACK PO SCH (08:01)
[2020-03-09] MEDS: INSULIN REGULAR 100 UNIT/ML SUBCUT SCH ×4 (08:29→21:18)
[2020-03-09] MEDS ORDERED: NON-FORMULARY MEDICATION (Omeprazole 20 MG) PO SCH (09:00)
[2020-03-09] MEDS: INSULIN GLARGINE 100 UNIT/ML SUBCUT SCH (16:55)
[2020-03-09] MEDS: cefTRIAXone 1,000 MG in SYRINGE 1 EACH IV SCH (20:41)
[2020-03-09] MEDS: ONDANSETRON 4 MG/2 ML VIAL IV PRN (20:42)
[2020-03-09] MEDS: SIMETHICONE CHEW 125 MG TABLET PO PRN (20:42)
[2020-03-09] MEDS: AZITHROMYCIN INJ 500 MG in SODIUM CHLORIDE 0.9% 250 ML IV SCH (20:42)
[2020-03-09] MEDS: traZODone 50 MG TABLET PO PRN (20:42)
[2020-03-09] MEDS: amLODIPine 10 MG TABLET PO SCH (20:42)
[2020-03-10 06:00] LABS: Hematocrit 36.4 VOL% (35.7-47.0); Hemoglobin 11.3 GM/DL (12.0-16.0); Immature Granulocytes % 0.2 %; Immature Granulocytes Absolute 0.01 #; Lymphocytes # 0.9 10*3/uL (1.4-4.0); Mean Corpuscular Volume 93.6 FL (87-102); Monocytes % 5.9 % (1.7-12.7); Neutrophils % 72.9 % (38.7-73.9); Platelet Count 165 T/CUMM (130-400); Red Blood Count 3.89 MC/CUMM (3.8-5.5); Red Cell Distribution Width 15.1 % (9.3-17.3)
[2020-03-10 06:31] LABS: Albumin 2.7 G/DL (3.4-5.0); Bilirubin,Total 0.5 MG/DL (0.2-1.0); Calcium 8.3 MG/DL (8.5-10.1); Total Protein 7.3 G/DL (6.4-8.3)
[2020-03-10] MEDS: INSULIN REGULAR 100 UNIT/ML SUBCUT SCH ×4 (08:00→22:20)
[2020-03-10] MEDS: SEVELAMER CARBONATE 800 MG TABLET PO SCH ×5 (08:01→20:55)
[2020-03-10] MEDS: POLYETHYLENE GLYCOL POWDER 17 GM PACK PO SCH (08:01)
[2020-03-10] MEDS: PANTOPRAZOLE 40 MG TABLET PO SCH (08:01)
[2020-03-10] MEDS: CINACALCET 30 MG TABLET PO SCH (08:01)
[2020-03-10] MEDS: DOCUSATE SODIUM 100 MG CAPSULE PO SCH ×2 (08:01→20:55)
[2020-03-10] MEDS: POTASSIUM CHLORIDE 20 MEQ TABLET PO PRN ×2 (08:02→11:45)
[2020-03-10] MEDS ORDERED: AZITHROMYCIN 250 MG TABLET PO SCH (09:00)
[2020-03-10] MEDS: ONDANSETRON 4 MG/2 ML VIAL IV PRN (11:46)
[2020-03-10] MEDS: INSULIN GLARGINE 100 UNIT/ML SUBCUT SCH (16:26)
[2020-03-10] MEDS: cefTRIAXone 1,000 MG in SYRINGE 1 EACH IV SCH (20:50)
[2020-03-10] MEDS: ZINC SULFATE 220 MG CAPSULE PO SCH (20:55)
[2020-03-10] MEDS: HYDROXYCHLOROQUINE 200 MG TABLET PO SCH (20:55)
[2020-03-10] MEDS: amLODIPine 10 MG TABLET PO SCH (20:55)
[2020-03-11 06:24] LABS: Hematocrit 32.7 VOL% (35.7-47.0); Hemoglobin 10.3 GM/DL (12.0-16.0); Immature Granulocytes % 0.7 %; Immature Granulocytes Absolute 0.02 #; Lymphocytes # 0.3 10*3/uL (1.4-4.0); Mean Corpuscular HGB Conc 31.5 GM/DL (32-36); Mean Corpuscular Volume 92.6 FL (87-102); Mean Platelet Volume 12.3 FL (9.6-12.0); Monocytes % 6.3 % (1.7-12.7); Platelet Count 153 T/CUMM (130-400); Red Blood Count 3.53 MC/CUMM (3.8-5.5); Red Cell Distribution Width 15.3 % (9.3-17.3)
[2020-03-11 06:46] LABS: Albumin 2.3 G/DL (3.4-5.0); Bilirubin,Total 1.2 MG/DL (0.2-1.0); Calcium 7.8 MG/DL (8.5-10.1); Total Protein 6.8 G/DL (6.4-8.3)
[2020-03-11 06:52] LABS: Band Neutrophils 2 % (0-10); Hypochromasia 1+; Lymphocytes 11 % (20-55); Platelet Estimate Adequate; Segmented Neutrophils 80 % (50-85); Total Cells Counted 100
[2020-03-11] MEDS: INSULIN REGULAR 100 UNIT/ML SUBCUT SCH ×4 (08:50→20:51)
[2020-03-11] MEDS: ONDANSETRON 4 MG/2 ML VIAL IV PRN ×2 (10:10→16:30)
[2020-03-11] MEDS: SEVELAMER CARBONATE 800 MG TABLET PO SCH ×3 (10:33→17:40)
[2020-03-11] MEDS: DOCUSATE SODIUM 100 MG CAPSULE PO SCH ×2 (10:33→20:51)
[2020-03-11] MEDS: POLYETHYLENE GLYCOL POWDER 17 GM PACK PO SCH (10:33)
[2020-03-11] MEDS: HYDROXYCHLOROQUINE 200 MG TABLET PO SCH ×2 (10:33→20:51)
[2020-03-11] MEDS: PANTOPRAZOLE 40 MG TABLET PO SCH (10:33)
[2020-03-11] MEDS: AZITHROMYCIN 250 MG TABLET PO SCH (10:34)
[2020-03-11] MEDS: CINACALCET 30 MG TABLET PO SCH (10:34)
[2020-03-11] MEDS: INSULIN GLARGINE 100 UNIT/ML SUBCUT SCH (17:40)
[2020-03-11] MEDS: cefTRIAXone 1,000 MG in SYRINGE 1 EACH IV SCH (20:44)
[2020-03-11] MEDS: amLODIPine 10 MG TABLET PO SCH (20:51)
[2020-03-12] MEDS: ONDANSETRON 4 MG/2 ML VIAL IV PRN ×3 (04:24→15:55)
[2020-03-12 05:45] LABS: Hematocrit 32.9 VOL% (35.7-47.0); Hemoglobin 10.4 GM/DL (12.0-16.0); Immature Granulocytes % 0.7 %; Immature Granulocytes Absolute 0.02 #; Lymphocytes # 0.2 10*3/uL (1.4-4.0); Lymphocytes % 6.9 % (21.3-54.2); Mean Corpuscular HGB Conc 31.6 GM/DL (32-36); Mean Corpuscular Volume 93.2 FL (87-102); Mean Platelet Volume 11.8 FL (9.6-12.0); Neutrophils % 84.4 % (38.7-73.9); Platelet Count 173 T/CUMM (130-400); Red Blood Count 3.53 MC/CUMM (3.8-5.5); Red Cell Distribution Width 15.1 % (9.3-17.3); White Blood Count 2.8 T/CUMM (4-12)
[2020-03-12 06:10] LABS: Albumin 2.3 G/DL (3.4-5.0); Bilirubin,Total 0.5 MG/DL (0.2-1.0); Calcium 7.5 MG/DL (8.5-10.1); Osmolality,Calculated 278.2 MOS/KG (273-304); Total Protein 6.8 G/DL (6.4-8.3)
[2020-03-12] MEDS: INSULIN REGULAR 100 UNIT/ML SUBCUT SCH ×4 (07:19→21:35)
[2020-03-12] MEDS: DOCUSATE SODIUM 100 MG CAPSULE PO SCH ×2 (09:09→21:30)
[2020-03-12] MEDS: POLYETHYLENE GLYCOL POWDER 17 GM PACK PO SCH (09:09)
[2020-03-12] MEDS: HYDROXYCHLOROQUINE 200 MG TABLET PO SCH ×2 (09:10→21:30)
[2020-03-12] MEDS: AZITHROMYCIN 250 MG TABLET PO SCH (09:10)
[2020-03-12] MEDS: PANTOPRAZOLE 40 MG TABLET PO SCH (09:10)
[2020-03-12] MEDS: CINACALCET 30 MG TABLET PO SCH (09:10)
[2020-03-12] MEDS: ZINC SULFATE 220 MG CAPSULE PO SCH (09:11)
[2020-03-12] MEDS: SEVELAMER CARBONATE 800 MG TABLET PO SCH ×3 (12:41→17:47)
[2020-03-12] MEDS: SIMETHICONE CHEW 125 MG TABLET PO PRN (12:45)
[2020-03-12] MEDS: CALCIUM CARBONATE CHEW 500 MG TABLET PO PRN (13:26)
[2020-03-12] MEDS: INSULIN GLARGINE 100 UNIT/ML SUBCUT SCH (17:47)
[2020-03-12] MEDS: amLODIPine 10 MG TABLET PO SCH (21:30)
[2020-03-13] MEDS: INSULIN REGULAR 100 UNIT/ML SUBCUT SCH ×4 (08:29→23:49)
[2020-03-13] MEDS: CINACALCET 30 MG TABLET PO SCH (09:43)
[2020-03-13] MEDS: PANTOPRAZOLE 40 MG TABLET PO SCH (09:44)
[2020-03-13] MEDS: HYDROXYCHLOROQUINE 200 MG TABLET PO SCH ×2 (09:44→22:20)
[2020-03-13] MEDS: POLYETHYLENE GLYCOL POWDER 17 GM PACK PO SCH (09:54)
[2020-03-13] MEDS: DOCUSATE SODIUM 100 MG CAPSULE PO SCH ×2 (09:54→22:20)
[2020-03-13] MEDS: SEVELAMER CARBONATE 800 MG TABLET PO SCH ×3 (09:54→19:02)
[2020-03-13] MEDS: INSULIN GLARGINE 100 UNIT/ML SUBCUT SCH (17:55)
[2020-03-13] MEDS: ONDANSETRON 4 MG/2 ML VIAL IV PRN ×2 (18:00→22:21)
[2020-03-13] MEDS: amLODIPine 10 MG TABLET PO SCH (22:20)
[2020-03-14] MEDS: POLYETHYLENE GLYCOL POWDER 17 GM PACK PO SCH (09:30)
[2020-03-14] MEDS: SEVELAMER CARBONATE 800 MG TABLET PO SCH ×3 (09:30→17:16)
[2020-03-14] MEDS: ZINC SULFATE 220 MG CAPSULE PO SCH (09:30)
[2020-03-14] MEDS: CINACALCET 30 MG TABLET PO SCH (09:30)
[2020-03-14] MEDS: DOCUSATE SODIUM 100 MG CAPSULE PO SCH ×2 (09:30→22:15)
[2020-03-14] MEDS: PANTOPRAZOLE 40 MG TABLET PO SCH (09:30)
[2020-03-14] MEDS: HYDROXYCHLOROQUINE 200 MG TABLET PO SCH ×2 (09:30→22:15)
[2020-03-14] MEDS: INSULIN REGULAR 100 UNIT/ML SUBCUT SCH ×4 (10:14→22:19)
[2020-03-14 14:51] LABS: Hematocrit 35.6 VOL% (35.7-47.0); Hemoglobin 10.7 GM/DL (12.0-16.0); Immature Granulocytes % 0.8 %; Immature Granulocytes Absolute 0.02 #; Lymphocytes # 0.2 10*3/uL (1.4-4.0); Lymphocytes % 8.6 % (21.3-54.2); Mean Corpuscular HGB Conc 30.1 GM/DL (32-36); Mean Platelet Volume 10.9 FL (9.6-12.0); Neutrophils % 81.6 % (38.7-73.9); Platelet Count 263 T/CUMM (130-400); Red Blood Count 3.67 MC/CUMM (3.8-5.5); Red Cell Distribution Width 15.1 % (9.3-17.3); White Blood Count 2.7 T/CUMM (4-12)
[2020-03-14 15:11] LABS: Calcium 7.5 MG/DL (8.5-10.1); Osmolality,Calculated 278.4 MOS/KG (273-304)
[2020-03-14] MEDS: INSULIN GLARGINE 100 UNIT/ML SUBCUT SCH (17:16)
[2020-03-14] MEDS: amLODIPine 10 MG TABLET PO SCH (22:15)
[2020-03-15] MEDS: INSULIN REGULAR 100 UNIT/ML SUBCUT SCH ×4 (08:00→20:21)
[2020-03-15] MEDS: ONDANSETRON 4 MG/2 ML VIAL IV PRN ×2 (08:20→16:41)
[2020-03-15] MEDS: CINACALCET 30 MG TABLET PO SCH (08:30)
[2020-03-15] MEDS: PANTOPRAZOLE 40 MG TABLET PO SCH (08:30)
[2020-03-15] MEDS: SEVELAMER CARBONATE 800 MG TABLET PO SCH ×3 (08:30→18:25)
[2020-03-15] MEDS: HYDROXYCHLOROQUINE 200 MG TABLET PO SCH (08:30)
[2020-03-15] MEDS: POLYETHYLENE GLYCOL POWDER 17 GM PACK PO SCH (08:30)
[2020-03-15] MEDS: DOCUSATE SODIUM 100 MG CAPSULE PO SCH ×2 (08:30→21:21)
[2020-03-15] MEDS ORDERED: TUBERCULIN SKIN TEST 0.1 ML SYRINGE INTRADERM ONE (15:00)
[2020-03-15] MEDS: INSULIN GLARGINE 100 UNIT/ML SUBCUT SCH (17:20)
[2020-03-15] MEDS: CALCIUM CARBONATE CHEW 500 MG TABLET PO PRN (17:20)
[2020-03-15] MEDS: amLODIPine 10 MG TABLET PO SCH (21:21)
[2020-03-16 03:59] LABS: Eosinophils % 0.3 % (0.00-10.9); Hematocrit 36.2 VOL% (35.7-47.0); Hemoglobin 11.7 GM/DL (12.0-16.0); Immature Granulocytes % 0.6 %; Immature Granulocytes Absolute 0.02 #; Lymphocytes # 0.3 10*3/uL (1.4-4.0); Lymphocytes % 10.1 % (21.3-54.2); Mean Corpuscular HGB Conc 32.3 GM/DL (32-36); Mean Platelet Volume 11.3 FL (9.6-12.0); Monocytes % 7.7 % (1.7-12.7); Neutrophils % 81.3 % (38.7-73.9); Platelet Count 216 T/CUMM (130-400); Red Blood Count 4.02 MC/CUMM (3.8-5.5); Red Cell Distribution Width 14.9 % (9.3-17.3); White Blood Count 3.3 T/CUMM (4-12)
[2020-03-16 04:21] LABS: Hypochromasia Slight; Ovalocytes Slight; Platelet Estimate Adequate
[2020-03-16 04:44] LABS: Calcium 7.8 MG/DL (8.5-10.1); Osmolality,Calculated 271.5 MOS/KG (273-304)
[2020-03-16] MEDS: ONDANSETRON 4 MG/2 ML VIAL IV PRN (05:00)
[2020-03-16] MEDS: POLYETHYLENE GLYCOL POWDER 17 GM PACK PO SCH (08:45)
[2020-03-16] MEDS: INSULIN REGULAR 100 UNIT/ML SUBCUT SCH ×4 (08:45→20:41)
[2020-03-16] MEDS: CINACALCET 30 MG TABLET PO SCH (08:45)
[2020-03-16] MEDS: SEVELAMER CARBONATE 800 MG TABLET PO SCH ×3 (08:45→16:25)
[2020-03-16] MEDS: PANTOPRAZOLE 40 MG TABLET PO SCH (08:45)
[2020-03-16] MEDS: DOCUSATE SODIUM 100 MG CAPSULE PO SCH ×2 (09:28→20:40)
[2020-03-16] MEDS: SCOPOLAMINE 1.5 MG PATCH TRANSDERM SCH (11:00)
[2020-03-16] MEDS: INSULIN GLARGINE 100 UNIT/ML SUBCUT SCH (16:25)
[2020-03-16] MEDS: traZODone 50 MG TABLET PO PRN (20:40)
[2020-03-16] MEDS: amLODIPine 10 MG TABLET PO SCH (20:42)
[2020-03-17] MEDS: ONDANSETRON 4 MG/2 ML VIAL IV PRN ×3 (05:00→17:40)
[2020-03-17] MEDS: PANTOPRAZOLE 40 MG TABLET PO SCH (09:17)
[2020-03-17] MEDS: CINACALCET 30 MG TABLET PO SCH (09:17)
[2020-03-17] MEDS: DOCUSATE SODIUM 100 MG CAPSULE PO SCH ×2 (09:17→20:59)
[2020-03-17] MEDS: SEVELAMER CARBONATE 800 MG TABLET PO SCH ×3 (09:17→17:27)
[2020-03-17] MEDS: POLYETHYLENE GLYCOL POWDER 17 GM PACK PO SCH (09:17)
[2020-03-17] MEDS: INSULIN REGULAR 100 UNIT/ML SUBCUT SCH ×4 (10:30→20:59)
[2020-03-17] MEDS: INSULIN GLARGINE 100 UNIT/ML SUBCUT SCH (16:11)
[2020-03-17] MEDS: amLODIPine 10 MG TABLET PO SCH (20:59)
[2020-03-17] MEDS: traZODone 50 MG TABLET PO PRN (21:00)
[2020-03-17] MEDS: diphenhydrAMINE CAP 25 MG CAPSULE PO PRN (21:00)
[2020-03-18] MEDS: PANTOPRAZOLE 40 MG TABLET PO SCH (08:41)
[2020-03-18] MEDS: CINACALCET 30 MG TABLET PO SCH (08:41)
[2020-03-18] MEDS: DOCUSATE SODIUM 100 MG CAPSULE PO SCH ×2 (08:41→20:29)
[2020-03-18] MEDS: POLYETHYLENE GLYCOL POWDER 17 GM PACK PO SCH (08:41)
[2020-03-18] MEDS: INSULIN REGULAR 100 UNIT/ML SUBCUT SCH ×4 (09:50→20:30)
[2020-03-18] MEDS: SEVELAMER CARBONATE 800 MG TABLET PO SCH ×3 (09:51→16:17)
[2020-03-18] MEDS: INSULIN GLARGINE 100 UNIT/ML SUBCUT SCH (16:10)
[2020-03-18] MEDS: ONDANSETRON 4 MG/2 ML VIAL IV PRN (17:41)
[2020-03-18] MEDS: amLODIPine 10 MG TABLET PO SCH (20:29)
[2020-03-18] MEDS: traZODone 50 MG TABLET PO PRN (20:29)
[2020-03-18] MEDS: diphenhydrAMINE CAP 25 MG CAPSULE PO PRN (20:29)
[2020-03-19] MEDS: INSULIN REGULAR 100 UNIT/ML SUBCUT SCH ×2 (07:56→11:42)
[2020-03-19] MEDS: SEVELAMER CARBONATE 800 MG TABLET PO SCH ×2 (08:21→13:25)
[2020-03-19] MEDS: ONDANSETRON 4 MG/2 ML VIAL IV PRN (08:21)
[2020-03-19] MEDS: PANTOPRAZOLE 40 MG TABLET PO SCH (08:21)
[2020-03-19] MEDS: CINACALCET 30 MG TABLET PO SCH (08:21)
[2020-03-19] MEDS: DOCUSATE SODIUM 100 MG CAPSULE PO SCH (09:06)
[2020-03-19] MEDS: POLYETHYLENE GLYCOL POWDER 17 GM PACK PO SCH (09:06)
[2020-03-19] MEDS: SCOPOLAMINE 1.5 MG PATCH TRANSDERM SCH (09:07)
[2020-03-19 13:58] VITALS: BP 114/56
== END 2020-03-19 16:41 | disposition home health service (06) | DRG 177 ==
LOC: EDBD → EDUNIT# → N.ED 11:55 → N.EDINP 15:32 → SUATTDRO 15:45 → N.2E 20:09 → N.2W 03-10 14:45
PROVIDERS: ADMIT Internal Medicine; ATTEND Internal Medicine

== ENCOUNTER 2022-07-18 18:42 | Inpatient (IN) ==
[2022-07-18 19:18] LABS: Basophils % 0.7 % (0.0-0.8); Eosinophils # 0.1 10*3/uL (0.0-0.87); Eosinophils % 1.4 % (0.00-10.9); Hemoglobin 10.8 GM/DL (12.0-16.0); Immature Granulocytes % 0.4 %; Immature Granulocytes Absolute 0.02 #; Lymphocytes # 0.5 10*3/uL (1.4-4.0); Lymphocytes % 8.6 % (21.3-54.2); Mean Corpuscular HGB Conc 30.9 GM/DL (32-36); Mean Corpuscular Volume 95.9 FL (87-102); Mean Platelet Volume 11.7 FL (9.6-12.0); Monocytes # 0.5 10*3/uL (0.11-0.8); Monocytes % 9.3 % (1.7-12.7); Neutrophils % 79.6 % (38.7-73.9); Platelet Count 186 T/CUMM (130-400); Red Blood Count 3.65 MC/CUMM (3.8-5.5); Red Cell Distribution Width 16.5 % (9.3-17.3); White Blood Count 5.6 T/CUMM (4-12)
[2022-07-18 19:29] LABS: PT Patient Result 10.9 SECS (10.1-12.1); Partial Thromboplastin Time 28.9 SECS (23.7-32.9)
[2022-07-18 19:45] LABS: Albumin 3.2 G/DL (3.4-5.0); Bilirubin,Total 0.4 MG/DL (0.20-1.00); Calcium 9.4 MG/DL (8.5-10.1); Osmolality,Calculated 285.2 MOS/KG (273-304); Potassium 4.4 MMOL/L (3.5-5.1); Total Protein 8.4 G/DL (6.4-8.2)
[2022-07-18] MEDS ORDERED: hydrALAZINE 20 MG/1 ML VIAL IV STA (20:47)
[2022-07-18] MEDS ORDERED: GLUCAGON 1 MG VIAL IM PRN (21:45)
[2022-07-18] MEDS ORDERED: guaiFENesin/DM ER 600-30 MG TABLET PO PRN (21:45)
[2022-07-18] MEDS ORDERED: ZALEPLON 5 MG CAPSULE PO PRN (21:45)
[2022-07-18] MEDS ORDERED: ALBUTEROL/IPRATROPIUM 3 ML NEB RESP TX PRN (21:45)
[2022-07-18] MEDS ORDERED: NICOTINE 21 MG/24 HR PATCH TRANSDERM PRN (21:45)
[2022-07-18] MEDS ORDERED: diphenhydrAMINE CAP 25 MG CAPSULE PO PRN (21:45)
[2022-07-18] MEDS ORDERED: ACETAMINOPHEN 325 MG TABLET PO PRN (21:45)
[2022-07-18] MEDS ORDERED: FUROSEMIDE 40 MG/4 ML VIAL IV STA (21:46)
[2022-07-18] MEDS: amLODIPine 10 MG TABLET PO SCH (23:15)
[2022-07-18] MEDS: INSULIN LISPRO 100 UNIT/ML SUBCUT SCH (23:39)
[2022-07-19 01:21] LABS: Basophils % 0.6 % (0.0-0.8); Eosinophils # 0.1 10*3/uL (0.0-0.87); Eosinophils % 1.3 % (0.00-10.9); Hematocrit 30.9 VOL% (35.7-47.0); Hemoglobin 9.5 GM/DL (12.0-16.0); Immature Granulocytes % 0.4 %; Immature Granulocytes Absolute 0.02 #; Lymphocytes # 0.4 10*3/uL (1.4-4.0); Lymphocytes % 7.9 % (21.3-54.2); Mean Corpuscular HGB Conc 30.7 GM/DL (32-36); Mean Platelet Volume 11.7 FL (9.6-12.0); Monocytes # 0.6 10*3/uL (0.11-0.8); Monocytes % 10.8 % (1.7-12.7); Platelet Count 156 T/CUMM (130-400); Red Blood Count 3.22 MC/CUMM (3.8-5.5); Red Cell Distribution Width 16.5 % (9.3-17.3); White Blood Count 5.3 T/CUMM (4-12)
[2022-07-19] MEDS: hydrALAZINE 20 MG/1 ML VIAL IV PRN (01:22)
[2022-07-19 01:39] LABS: Calcium 9.3 MG/DL (8.5-10.1); Osmolality,Calculated 285.2 MOS/KG (273-304); Potassium 4.3 MMOL/L (3.5-5.1)
[2022-07-19] MEDS: INSULIN LISPRO 100 UNIT/ML SUBCUT SCH ×3 (05:30→17:30)
[2022-07-19] MEDS: BISACODYL 5 MG TABLET PO SCH (12:00)
[2022-07-19] MEDS: SEVELAMER CARBONATE 800 MG TABLET PO SCH ×3 (12:02→22:02)
[2022-07-19] MEDS: PANTOPRAZOLE 40 MG TABLET PO SCH (12:02)
[2022-07-19] MEDS: ONDANSETRON 4 MG/2 ML VIAL IV PRN (12:41)
[2022-07-19] MEDS ORDERED: HEPARIN 10,000 UNIT/10 ML VIAL IV PRN (13:04)
[2022-07-19] MEDS ORDERED: POLYETHYLENE GLYCOL POWDER 17 GM PACK PO PRN (17:49)
[2022-07-19] MEDS ORDERED: INSULIN GLARGINE 100 UNIT/ML SUBCUT SCH (21:00)
[2022-07-19] MEDS: DONEPEZIL 10 MG TABLET PO SCH (22:02)
[2022-07-19] MEDS: amLODIPine 10 MG TABLET PO SCH (22:03)
[2022-07-20] MEDS: ONDANSETRON 4 MG/2 ML VIAL IV PRN (00:42)
[2022-07-20] MEDS: hydrALAZINE 20 MG/1 ML VIAL IV PRN (00:42)
[2022-07-20 06:14] LABS: Basophils % 0.1 % (0.0-0.8); Hematocrit 34.1 VOL% (35.7-47.0); Hemoglobin 10.8 GM/DL (12.0-16.0); Immature Granulocytes % 0.5 %; Immature Granulocytes Absolute 0.05 #; Lymphocytes # 0.2 10*3/uL (1.4-4.0); Lymphocytes % 2.1 % (21.3-54.2); Mean Corpuscular HGB Conc 31.7 GM/DL (32-36); Mean Corpuscular Volume 94.5 FL (87-102); Monocytes # 0.5 10*3/uL (0.11-0.8); Neutrophils % 92.3 % (38.7-73.9); Platelet Count 151 T/CUMM (130-400); Red Blood Count 3.61 MC/CUMM (3.8-5.5); Red Cell Distribution Width 16.3 % (9.3-17.3); White Blood Count 9.7 T/CUMM (4-12)
[2022-07-20 06:37] LABS: Band Neutrophils 3 % (0-10); Lymphocytes 2 % (20-55); Total Cells Counted 100
[2022-07-20 06:38] LABS: Microcytosis Slight; Platelet Estimate Adequate
[2022-07-20] MEDS: INSULIN LISPRO 100 UNIT/ML SUBCUT SCH ×4 (06:39→18:17)
[2022-07-20 06:44] LABS: Calcium 9.8 MG/DL (8.5-10.1); Osmolality,Calculated 283.4 MOS/KG (273-304); Potassium 4.6 MMOL/L (3.5-5.1)
[2022-07-20] MEDS: BISACODYL 5 MG TABLET PO SCH (09:04)
[2022-07-20] MEDS: PANTOPRAZOLE 40 MG TABLET PO SCH (09:04)
[2022-07-20] MEDS: SEVELAMER CARBONATE 800 MG TABLET PO SCH ×3 (09:04→21:08)
[2022-07-20] MEDS: INSULIN GLARGINE 100 UNIT/ML SUBCUT SCH ×2 (13:15→21:09)
[2022-07-20] MEDS ORDERED: SODIUM CHLORIDE 0.9% 500 ML IV ONE (13:29)
[2022-07-20] MEDS ORDERED: SODIUM CHLORIDE 0.9% 250 ML IV ONE (13:29)
[2022-07-20 17:11] LABS: Amylase,Pleural Fluid 52 U/L; Glucose,Pleural Fluid 286 MG/DL; LDH,Pleural Fluid 89 U/L; Total Protein,Pleural Fluid 3.5 G/DL
[2022-07-20 17:26] LABS: Lymphocytes,Pleural Fluid 90 %; Monocytes,Pleural Fluid 2 %; Neutrophils,Pleural Fluid 8 %; RBC,Pleural Fluid 2938 T/CUMM
[2022-07-20] MEDS ORDERED: INSULIN GLARGINE 100 UNIT/ML SUBCUT SCH (21:00)
[2022-07-20] MEDS: DONEPEZIL 10 MG TABLET PO SCH (21:07)
[2022-07-21] MEDS: INSULIN LISPRO 100 UNIT/ML SUBCUT SCH ×4 (00:59→18:18)
[2022-07-21 05:30] LABS: Basophils % 0.2 % (0.0-0.8); Hematocrit 33.4 VOL% (35.7-47.0); Hemoglobin 10.3 GM/DL (12.0-16.0); Immature Granulocytes % 0.6 %; Immature Granulocytes Absolute 0.06 #; Lymphocytes # 0.5 10*3/uL (1.4-4.0); Mean Corpuscular HGB Conc 30.8 GM/DL (32-36); Mean Corpuscular Volume 95.7 FL (87-102); Mean Platelet Volume 12.6 FL (9.6-12.0); Monocytes % 10.7 % (1.7-12.7); Neutrophils % 83.5 % (38.7-73.9); Platelet Count 93 T/CUMM (130-400); Red Blood Count 3.49 MC/CUMM (3.8-5.5); Red Cell Distribution Width 16.7 % (9.3-17.3); White Blood Count 9.5 T/CUMM (4-12)
[2022-07-21 05:46] LABS: Calcium 9.3 MG/DL (8.5-10.1); Osmolality,Calculated 281.4 MOS/KG (273-304); Potassium 5.7 MMOL/L (3.5-5.1)
[2022-07-21] MEDS ORDERED: VANCOMYCIN INJ 500 MG in SODIUM CHLORIDE 0.9% 100 ML IV PRN (08:23)
[2022-07-21] MEDS ORDERED: LEVOFLOXACIN INJ 750 MG/150 ML PREMIX IV ONE (08:30)
[2022-07-21] MEDS ORDERED: CEFEPIME 2,000 MG in SODIUM CHLORIDE 0.9% 100 ML IV SCH (09:00)
[2022-07-21 10:29] LABS: Albumin 2.6 G/DL (3.4-5.0); Total Protein 7.8 G/DL (6.4-8.2)
[2022-07-21] MEDS: BISACODYL 5 MG TABLET PO SCH (10:31)
[2022-07-21] MEDS: PANTOPRAZOLE 40 MG TABLET PO SCH (10:31)
[2022-07-21] MEDS: SEVELAMER CARBONATE 800 MG TABLET PO SCH ×3 (10:32→21:23)
[2022-07-21 11:13] LABS: Lactic Acid 1.9 MMOL/L (0.4-2.0)
[2022-07-21 11:16] LABS: Ammonia < 10 UMOL/L (11-32)
[2022-07-21 11:19] LABS: Arterial Base Excess iSTAT 2 MMOL/L (-2.5-2.5); Arterial Bicarbonate iSTAT 25.2 MMOL/L (20-26); Arterial O2 Saturation iSTAT 66 % (95-100); Arterial PCO2 iSTAT 35 MM HG (35-48); Arterial PO2 iSTAT 32 MM HG (80-95); Arterial Total CO2 iSTAT 26 MMO/L (23-27)
[2022-07-21] MEDS ORDERED: VANCOMYCIN INJ 1,000 MG in SODIUM CHLORIDE 0.9% 250 ML IV SCH (11:30)
[2022-07-21 11:36] LABS: Arterial Base Excess iSTAT 2 MMOL/L (-2.5-2.5); Arterial Bicarbonate iSTAT 24.7 MMOL/L (20-26); Arterial O2 Saturation iSTAT 99 % (95-100); Arterial PCO2 iSTAT 31 MM HG (35-48); Arterial PO2 iSTAT 114 MM HG (80-95); Arterial Total CO2 iSTAT 26 MMO/L (23-27); Arterial pH iSTAT 7.505 (7.35-7.45)
[2022-07-21] MEDS ORDERED: VANCOMYCIN INJ 1,750 MG in SODIUM CHLORIDE 0.9% 500 ML IV ONE (17:00)
[2022-07-21] MEDS: CEFEPIME 1,000 MG in SODIUM CHLORIDE 0.9% 100 ML IV SCH (19:29)
[2022-07-21] MEDS: DEXTROSE 10% 250 ML BAG IV PRN ×2 (20:21→23:28)
[2022-07-21 20:45] LABS: Arterial Base Excess iSTAT 3 MMOL/L (-2.5-2.5); Arterial Bicarbonate iSTAT 27.3 MMOL/L (20-26); Arterial O2 Saturation iSTAT 99 % (95-100); Arterial PCO2 iSTAT 39 MM HG (35-48); Arterial PO2 iSTAT 145 MM HG (80-95); Arterial Total CO2 iSTAT 28 MMO/L (23-27); Arterial pH iSTAT 7.458 (7.35-7.45)
[2022-07-21] MEDS: DONEPEZIL 10 MG TABLET PO SCH (21:21)
[2022-07-21] MEDS: INSULIN GLARGINE 100 UNIT/ML SUBCUT SCH (21:22)
[2022-07-21] MEDS: ACETAMINOPHEN 650 MG SUPP RECTAL PRN (23:16)
[2022-07-22] MEDS: INSULIN LISPRO 100 UNIT/ML SUBCUT SCH ×4 (01:43→17:34)
[2022-07-22] MEDS: ACETAMINOPHEN 650 MG SUPP RECTAL PRN (03:32)
[2022-07-22 05:21] LABS: Calcium 9.4 MG/DL (8.5-10.1); Osmolality,Calculated 277.2 MOS/KG (273-304); Potassium 4.5 MMOL/L (3.5-5.1)
[2022-07-22 06:08] LABS: Basophils % 0.3 % (0.0-0.8); Eosinophils % 0.2 % (0.00-10.9); Hematocrit 34.1 VOL% (35.7-47.0); Hemoglobin 10.7 GM/DL (12.0-16.0); Immature Granulocytes % 0.9 %; Immature Granulocytes Absolute 0.13 #; Lymphocytes # 0.3 10*3/uL (1.4-4.0); Lymphocytes % 1.9 % (21.3-54.2); Mean Corpuscular HGB Conc 31.4 GM/DL (32-36); Mean Corpuscular Volume 94.7 FL (87-102); Mean Platelet Volume 13.6 FL (9.6-12.0); Monocytes # 0.5 10*3/uL (0.11-0.8); Monocytes % 3.7 % (1.7-12.7); Red Cell Distribution Width 16.8 % (9.3-17.3)
[2022-07-22 06:10] LABS: Platelet Count 87 T/CUMM (130-400); White Blood Count 14.5 T/CUMM (4-12)
[2022-07-22 06:28] LABS: Band Neutrophils 1 % (0-10); Eosinophils 1 % (0-10); Lymphocytes 4 % (20-55); Platelet Estimate Decreased; Total Cells Counted 100
[2022-07-22] MEDS: BISACODYL 5 MG TABLET PO SCH (08:30)
[2022-07-22] MEDS: PANTOPRAZOLE 40 MG TABLET PO SCH (08:30)
[2022-07-22] MEDS: SEVELAMER CARBONATE 800 MG TABLET PO SCH ×3 (08:31→20:44)
[2022-07-22] MEDS: CEFEPIME 1,000 MG in SODIUM CHLORIDE 0.9% 100 ML IV SCH (17:29)
[2022-07-22] MEDS: INSULIN GLARGINE 100 UNIT/ML SUBCUT SCH (20:44)
[2022-07-22] MEDS: DONEPEZIL 10 MG TABLET PO SCH (20:44)
[2022-07-23] MEDS: INSULIN LISPRO 100 UNIT/ML SUBCUT SCH ×4 (00:30→19:32)
[2022-07-23 06:57] LABS: Basophils % 0.1 % (0.0-0.8); Eosinophils % 0.3 % (0.00-10.9); Hematocrit 33.7 VOL% (35.7-47.0); Hemoglobin 10.4 GM/DL (12.0-16.0); Immature Granulocytes Absolute 0.29 #; Lymphocytes # 0.4 10*3/uL (1.4-4.0); Lymphocytes % 2.9 % (21.3-54.2); Mean Corpuscular HGB Conc 30.9 GM/DL (32-36); Mean Corpuscular Volume 94.4 FL (87-102); Monocytes # 0.8 10*3/uL (0.11-0.8); Monocytes % 5.7 % (1.7-12.7); NRBC # 0.03 10*3/uL; Red Blood Count 3.57 MC/CUMM (3.8-5.5); White Blood Count 14.6 T/CUMM (4-12)
[2022-07-23 07:01] LABS: Platelet Count 64 T/CUMM (130-400)
[2022-07-23 07:06] LABS: Calcium 9.2 MG/DL (8.5-10.1); Osmolality,Calculated 299.7 MOS/KG (273-304); Potassium 4.9 MMOL/L (3.5-5.1)
[2022-07-23 07:34] LABS: Band Neutrophils 10 % (0-10); Eosinophils 1 % (0-10); Hypochromia 1+; Lymphocytes 2 % (20-55); Total Cells Counted 100
[2022-07-23 07:35] LABS: Acanthocytes Few; Burr Cells Few; Microcytosis 1+
[2022-07-23 07:36] LABS: Ovalocytes Slight; Platelet Estimate Decreased
[2022-07-23] MEDS ORDERED: LEVOFLOXACIN INJ 500 MG/100 ML PREMIX IV SCH (08:30)
[2022-07-23] MEDS: BISACODYL 5 MG TABLET PO SCH (09:07)
[2022-07-23] MEDS: PANTOPRAZOLE 40 MG TABLET PO SCH (09:07)
[2022-07-23] MEDS: SEVELAMER CARBONATE 800 MG TABLET PO SCH ×3 (09:08→21:43)
[2022-07-23] MEDS: INSULIN GLARGINE 100 UNIT/ML SUBCUT SCH (21:43)
[2022-07-23] MEDS: DONEPEZIL 10 MG TABLET PO SCH (21:43)
[2022-07-24] MEDS: INSULIN LISPRO 100 UNIT/ML SUBCUT SCH ×2 (03:02→07:15)
[2022-07-24 04:24] VITALS: BP 139/72
[2022-07-24 06:39] LABS: Calcium 9.4 MG/DL (8.5-10.1); Osmolality,Calculated 314.5 MOS/KG (273-304); Potassium 5.5 MMOL/L (3.5-5.1)
[2022-07-24 06:55] LABS: Basophils # 0.1 10*3/uL (0.0-0.2); Basophils % 0.3 % (0.0-0.8); Eosinophils % 0.2 % (0.00-10.9); Hematocrit 33.8 VOL% (35.7-47.0); Hemoglobin 10.3 GM/DL (12.0-16.0); Immature Granulocytes % 4.6 %; Immature Granulocytes Absolute 0.81 #; Lymphocytes # 0.7 10*3/uL (1.4-4.0); Lymphocytes % 4.2 % (21.3-54.2); Mean Corpuscular HGB Conc 30.5 GM/DL (32-36); Mean Corpuscular Volume 93.9 FL (87-102); Monocytes # 1.4 10*3/uL (0.11-0.8); Monocytes % 8.1 % (1.7-12.7); NRBC # 0.07 10*3/uL; Neutrophils % 82.6 % (38.7-73.9); Red Cell Distribution Width 17.3 % (9.3-17.3); White Blood Count 17.5 T/CUMM (4-12)
[2022-07-24] MEDS: DEXTROSE 10% 250 ML BAG IV PRN (06:56)
[2022-07-24 06:58] LABS: Platelet Count 20 T/CUMM (130-400)
[2022-07-24 07:14] LABS: Eosinophils 1 % (0-10); Lymphocytes 2 % (20-55); Platelet Estimate Decreased; Total Cells Counted 100
[2022-07-24] MEDS ORDERED: SODIUM CHLORIDE 0.9% 1,000 ML IV PRN (07:20)
[2022-07-24 08:32] LABS: INR 1.9; PT Patient Result 19.8 SECS (10.1-12.1)
[2022-07-24 10:14] LABS: Arterial Base Excess iSTAT -6 MMOL/L (-2.5-2.5); Arterial Bicarbonate iSTAT 18.4 MMOL/L (20-26); Arterial O2 Saturation iSTAT 98 % (95-100); Arterial PCO2 iSTAT 32 MM HG (35-48); Arterial PO2 iSTAT 108 MM HG (80-95); Arterial Total CO2 iSTAT 19 MMO/L (23-27); Arterial pH iSTAT 7.362 (7.35-7.45)
[2022-07-24] MEDS: SEVELAMER CARBONATE 800 MG TABLET PO SCH (10:19)
[2022-07-24] MEDS: BISACODYL 5 MG TABLET PO SCH (10:19)
[2022-07-24] MEDS: PANTOPRAZOLE 40 MG TABLET PO SCH (10:50)
[2022-07-24 12:23] LABS: Basophils # 0.1 10*3/uL (0.0-0.2); Basophils % 0.3 % (0.0-0.8); Eosinophils % 0.1 % (0.00-10.9); Hemoglobin 10.7 GM/DL (12.0-16.0); Immature Granulocytes % 2.9 %; Immature Granulocytes Absolute 0.54 #; Lymphocytes # 0.7 10*3/uL (1.4-4.0); Lymphocytes % 3.9 % (21.3-54.2); Mean Corpuscular HGB Conc 31.5 GM/DL (32-36); Mean Corpuscular Volume 93.7 FL (87-102); Monocytes # 1.4 10*3/uL (0.11-0.8); Monocytes % 7.2 % (1.7-12.7); NRBC # 0.05 10*3/uL; Neutrophils % 85.6 % (38.7-73.9); Red Blood Count 3.63 MC/CUMM (3.8-5.5); Red Cell Distribution Width 17.4 % (9.3-17.3); White Blood Count 18.7 T/CUMM (4-12)
[2022-07-24] MEDS ORDERED: EPINEPHrine 1 MG/ML VIAL ONE (12:23)
[2022-07-24 12:26] LABS: Platelet Count 18 T/CUMM (130-400)
[2022-07-24 12:47] LABS: Band Neutrophils 3 % (0-10); Lymphocytes 2 % (20-55); Total Cells Counted 100
[2022-07-24 12:48] LABS: Burr Cells 1+
[2022-07-24 12:51] LABS: Anisocytosis Slight; Platelet Estimate Decreased
[2022-07-24 13:00] LABS: Albumin 1.7 G/DL (3.4-5.0); Bilirubin,Total 0.7 MG/DL (0.20-1.00); Calcium 9.2 MG/DL (8.5-10.1); Osmolality,Calculated 319.5 MOS/KG (273-304); Potassium 5.8 MMOL/L (3.5-5.1); Total Protein 5.7 G/DL (6.4-8.2)
[2022-07-25] MEDS ORDERED: CINACALCET 30 MG TABLET PO SCH (09:00)
[2022-07-26 21:02] LABS: HIT Interpretation Negative (Negative)
== END 2022-07-24 12:50 | disposition expired | DRG 314 ==
LOC: N.ED 18:42 → SUATTDRO 21:45 → N.EDINP 21:45 → N.TELEN 22:09 → N.CC 07-24 09:53
PROVIDERS: ADMIT Hospitalist; ATTEND Internal Medicine